=== PATIENT | male | born 1995 | race Caucasian/White ===

== ENCOUNTER 2017-08-19 22:52 | Emergency (ER) | payer OTHER ==
[~2017-08-19] VITALS: Ht 182.9 cm; Wt 68.0 kg
[~2017-08-19 22:52] MED LIST: CRUTCH3 USE; HYDHCL10 PO; IBUP800 PO; NAPR375 PO; PERM5TC TOP; RXOXYACE PO; Zofran Odt4 MG SL
== END 2017-08-20 00:02 | disposition home or self-care (01) ==
LOC: ER 22:52
DX: S91.331A Puncture wound without foreign body, right foot, initial encounter (principal); W22.8XXA Striking against or struck by other objects, initial encounter
CPT/HCPCS: 90471; 90714; 99282

== ENCOUNTER 2018-12-27 03:00 | Emergency (ER) | payer OTHER ==
[~2018-12-27] VITALS: Ht 182.9 cm; Wt 83.9 kg
[2018-12-27 03:53] LABS: BASOPHILS ABSOLUTE AUTO 0.03 K/mm3 (0.00-0.23); BASOPHILS PERCENT AUTO 0 % (0-2); EOSINOPHILS ABSOLUTE AUTO 0.15 K/mm3 (0.00-0.68); EOSINOPHILS PERCENT AUTO 2 % (0-6); Hematocrit 49.3 % (37.0-53.0); Hemoglobin 16.5 g/dL (13.5-17.5); IMMATURE GRAN ABSOLUTE AUTO 0.04 K/mm3 (0.00-0.10); IMMATURE GRAN PERCENT AUTO 1 % (0-1); LYMPHOCYTES ABSOLUTE AUTO 1.45 K/mm3 (0.84-5.20); LYMPHOCYTES PERCENT AUTO 22 % (21-46); MONOCYTES ABSOLUTE AUTO 0.64 K/mm3 (0.16-1.47); MONOCYTES PERCENT AUTO 10 % (4-13); Mean Corpuscular HGB 29.5 pg (26.0-34.0); Mean Corpuscular HGB Conc 33.5 g/dL (31.5-36.5); Mean Corpuscular Volume 88 fL (80-100); Mean Platelet Volume 9.5 fL (9.1-12.4); NEUTROPHILS ABSOLUTE AUTO 4.43 K/mm3 (1.96-9.15); NEUTROPHILS PERCENT AUTO 66 % (41-73); Platelet Count 266 K/mm3 (150-400); RDW Coefficient Variation 11.6 % (11.7-14.2); White Blood Cell Count 6.74 K/mm3 (4.00-11.30)
[2018-12-27 04:10] LABS: Alanine Aminotransfer (ALT/SGP 50 U/L (12-78); Albumin, Blood 4.6 g/dL (3.4-5.0); Albumin/Globulin Ratio 1.2 (0.8-1.8); Alk Phos 128 U/L (50-136); Anion Gap 4 mmol/L (6-16); Aspartate Aminotrans (AST/SGOT 35 U/L (12-37); Bilirubin, Total 0.4 mg/dL (0.1-1.0); Blood Urea Nitrogen 16 mg/dL (8-24); CO2, Blood 29 mmol/L (21-32); Calcium, Blood 9.6 mg/dL (8.5-10.1); Chloride, Blood 107 mmol/L (98-108); Creatinine, Blood 0.94 mg/dL (0.60-1.20); Globulin, Blood 3.8 g/dL (2.2-4.0); Glomerular Filtration Rate >60 (60-); Glucose, Blood 92 mg/dL (70-99); Potassium, Blood 3.6 mmol/L (3.5-5.5); Sodium, Blood 140 mmol/L (136-145); Total Protein, Blood 8.4 g/dL (6.4-8.2)
== END 2018-12-27 05:18 | disposition home or self-care (01) ==
LOC: ER 03:00
PROVIDERS: Emergency Medicine
DX: K59.00 Constipation, unspecified (principal)
CPT/HCPCS: 36415; 74176; 80053; 85025; 96374; 99284-25; J1885

== ENCOUNTER 2022-09-03 21:54 | Emergency (ER) | payer OTHER ==
[~2022-09-03] VITALS: Ht 182.9 cm; Wt 86.2 kg
[2022-09-03 22:14] VITALS: BP 187/95
[2022-09-03] MEDS ORDERED: Prednisone20 MG PO (22:16)
== END 2022-09-03 22:30 | disposition home or self-care (01) ==
LOC: ER 21:54
DX: L25.5 Unspecified contact dermatitis due to plants, except food (principal); Z79.52 Long term (current) use of systemic steroids
CPT/HCPCS: 99283; J7512